=== PATIENT | female | born 1945 | race Hispanic/Latino ===

== ENCOUNTER → 2017-11-14 | Outpatient (CLI) | payer MEDICARE | END | disposition home or self-care (01) | LOC: RAH 17:18 | PROVIDERS: ATTEND Podiatrist | DX: S93.401A Sprain of unspecified ligament of right ankle, initial encounter (principal); M85.89 Other specified disorders of bone density and structure, multiple sites; M19.071 Primary osteoarthritis, right ankle and foot; R26.2 Difficulty in walking, not elsewhere classified; W01.10XA Fall on same level from slipping, tripping and stumbling with subsequent striking against unspecified object, initial encounter; Y93.89 Activity, other specified; Y92.89 Other specified places as the place of occurrence of the external cause; Y99.8 Other external cause status | CPT/HCPCS: 73600; 73630 ==

== ENCOUNTER 2018-08-23 17:35 | Emergency (ER) | payer MEDICARE ==
[2018-08-23] MEDS ORDERED: KETOROLAC TROMETHAMINE 30MG/ML ONE (18:27)
== END 2018-08-23 19:37 | disposition home or self-care (01) ==
LOC: EDH 17:35
DX: M17.11 Unilateral primary osteoarthritis, right knee (principal); I10 Essential (primary) hypertension; M06.9 Rheumatoid arthritis, unspecified; Z88.0 Allergy status to penicillin; Z98.890 Other specified postprocedural states
CPT/HCPCS: 73560; 93971; 96372; 99284; J1885

== ENCOUNTER → 2019-04-30 | Outpatient (CLI) | payer MEDICARE | END | disposition home or self-care (01) | LOC: RAH 12:59 | PROVIDERS: ATTEND Anesthesiology | DX: M23.205 Derangement of unspecified medial meniscus due to old tear or injury, unspecified knee (principal); M17.0 Bilateral primary osteoarthritis of knee; M47.816 Spondylosis without myelopathy or radiculopathy, lumbar region; M51.26 Other intervertebral disc displacement, lumbar region; N28.1 Cyst of kidney, acquired; M25.761 Osteophyte, right knee; M25.762 Osteophyte, left knee; X58.XXXA Exposure to other specified factors, initial encounter; Y93.89 Activity, other specified; Y92.89 Other specified places as the place of occurrence of the external cause; Y99.8 Other external cause status | CPT/HCPCS: 72100; 72148; 73562 ==

== ENCOUNTER → 2019-05-05 | Outpatient (CLI) | payer MEDICARE | END | disposition home or self-care (01) | LOC: RAH 13:24 | PROVIDERS: ATTEND Anesthesiology | DX: S83.282A Other tear of lateral meniscus, current injury, left knee, initial encounter (principal); S83.281A Other tear of lateral meniscus, current injury, right knee, initial encounter; M17.0 Bilateral primary osteoarthritis of knee; M25.761 Osteophyte, right knee; M25.461 Effusion, right knee; X58.XXXA Exposure to other specified factors, initial encounter; Y93.89 Activity, other specified; Y92.89 Other specified places as the place of occurrence of the external cause; Y99.8 Other external cause status | CPT/HCPCS: 73721 ==

== ENCOUNTER → 2019-06-30 | Outpatient (CLI) | payer MEDICARE | END | disposition home or self-care (01) | LOC: RAH 15:20 | PROVIDERS: ATTEND Internal Medicine | DX: M85.80 Other specified disorders of bone density and structure, unspecified site (principal) | CPT/HCPCS: 71100 ==

== ENCOUNTER → 2021-01-26 | Outpatient (CLI) | payer MEDICARE | END | disposition home or self-care (01) | LOC: LAB 09:57 | PROVIDERS: ATTEND Internal Medicine | DX: M25.551 Pain in right hip (principal); M25.552 Pain in left hip; M47.816 Spondylosis without myelopathy or radiculopathy, lumbar region; M51.37 Other intervertebral disc degeneration, lumbosacral region; M48.07 Spinal stenosis, lumbosacral region; I87.8 Other specified disorders of veins; M25.461 Effusion, right knee; M25.761 Osteophyte, right knee; M17.11 Unilateral primary osteoarthritis, right knee; W19.XXXA Unspecified fall, initial encounter; Y93.89 Activity, other specified; Y92.89 Other specified places as the place of occurrence of the external cause; Y99.8 Other external cause status | CPT/HCPCS: 72040; 72100; 73521; 73560 ==

== ENCOUNTER → 2024-04-24 | Outpatient (CLI) | payer MEDICARE | END | disposition home or self-care (01) | LOC: RAH 10:05 | PROVIDERS: ATTEND Physician Assistant | DX: M19.011 Primary osteoarthritis, right shoulder (principal); M19.041 Primary osteoarthritis, right hand; M79.601 Pain in right arm; W19.XXXA Unspecified fall, initial encounter | CPT/HCPCS: 73030; 73060 ==

== ENCOUNTER → 2024-08-20 | Outpatient (CLI) | payer MEDICARE ==
[2024-08-20 16:48] LABS: ALBUMIN 3.5 g/dL (3.5-5.0); BILIRUBIN,TOTAL 0.3 mg/dL (0.2-1.0); CREATININE 0.8 mg/dL (0.5-1.0); POTASSIUM 3.9 mmol/L (3.5-5.1); TOTAL PROTEIN, SERUM 6.9 g/dL (6.0-8.3)
== END | disposition home or self-care (01) ==
LOC: LAB 13:20
PROVIDERS: ATTEND Internal Medicine Cardiovascular Disease
DX: I10 Essential (primary) hypertension (principal)
CPT/HCPCS: 36415; 80053

== ENCOUNTER → 2024-10-17 | Outpatient (CLI) | payer MEDICARE ==
--- NOTE | 2024-10-17 10:29 | HMCIMG ---
US ABDOMINAL COMPLETE REASON: epigastric pain COMPARISON: None FINDINGS: There is moderate fatty infiltration of the liver. There are no focal mass lesions. The liver is not enlarged.The gallbladder is surgically absent. Right kidney is 11 x 5 x 5.6 cm, left 11 x 4.7 x 4 cm. There is a 3.3 cm right renal cyst. There are multiple cysts on the left, largest 3 cm. There is mild to moderate hydronephrosis on the left. There is no hydronephrosis visible on the right. Spleen and common duct appear normal. Aorta and inferior vena cava appear normal. The pancreas appears normal as well. IMPRESSION: 1. Absent gallbladder. 2. Moderate hydronephrosis on the left, there are bilateral renal cysts. 3. Moderate hepatic steatosis.
== END | disposition home or self-care (01) ==
LOC: RAH 08:42
PROVIDERS: ATTEND Internal Medicine
DX: K76.0 Fatty (change of) liver, not elsewhere classified (principal); N28.1 Cyst of kidney, acquired; N13.30 Unspecified hydronephrosis; R10.13 Epigastric pain; Z90.49 Acquired absence of other specified parts of digestive tract
CPT/HCPCS: 76700